=== PATIENT | male | born 1975 | race Caucasian/White ===

== ENCOUNTER → 2023-02-11 07:59 | Outpatient (REF) | payer BC, SELFPAY | LOC: CLAB 07:59 | PROVIDERS: ATTENDING PHYSICIAN Surgery; REFERRING PHYSICIAN Family Medicine | DX: T81.31XA Disruption of external operation (surgical) wound, not elsewhere classified, initial encounter (principal); S31.109A Unspecified open wound of abdominal wall, unspecified quadrant without penetration into peritoneal cavity, initial encounter; C20 Malignant neoplasm of rectum; C78.7 Secondary malignant neoplasm of liver and intrahepatic bile duct; Z92.3 Personal history of irradiation; Y83.8 Other surgical procedures as the cause of abnormal reaction of the patient, or of later complication, without mention of misadventure at the time of the procedure | CPT/HCPCS: 11042; 87070; 87147; 87186; 87205; 99204 ==

== ENCOUNTER → 2023-02-16 08:54 | Outpatient (REF) | payer BC, SELFPAY | LOC: WOUND 08:54 | PROVIDERS: ATTENDING PHYSICIAN Surgery; REFERRING PHYSICIAN Family Medicine | DX: T81.31XA Disruption of external operation (surgical) wound, not elsewhere classified, initial encounter (principal); S31.109A Unspecified open wound of abdominal wall, unspecified quadrant without penetration into peritoneal cavity, initial encounter; C20 Malignant neoplasm of rectum; C78.7 Secondary malignant neoplasm of liver and intrahepatic bile duct; Z92.3 Personal history of irradiation; X58.XXXA Exposure to other specified factors, initial encounter | CPT/HCPCS: 11042; 99204 ==

== ENCOUNTER → 2023-06-11 08:44 | Outpatient (REF) | payer BC, SELFPAY ==
[2023-06-11 11:59] LABS: HDL Cholesterol 41 mg/dl; LDL Cholesterol, Calculated 119 mg/dl; Total Cholesterol 182 mg/dl (50-199); Triglyceride 113 mg/dl (10-149); Very Low Density Lipoprotein 22 mg/dl (0-30)
== END ==
LOC: RAD 08:44
PROVIDERS: ATTENDING PHYSICIAN Family Medicine; OTHER PHYSICIAN Internal Medicine Cardiovascular Disease
DX: K43.2 Incisional hernia without obstruction or gangrene (principal)
CPT/HCPCS: 36415; 76705; 80061

== ENCOUNTER → 2024-07-11 10:39 | Outpatient (REF) | payer BC, SELFPAY ==
[2024-07-11 12:55] LABS: % Basophils 0.9 % (0-2); % Eosinophils 2.3 % (0-6); % Immature Granulocytes 0.5 % (0-0.5); % Lymphocytes 23.2 % (20.5-51.1); % Monocytes 11.5 % (1.7-9.3); % Neutrophils 61.6 % (42.2-75.2); Absolute Eosinophils 0.1 10^3/uL (0-0.7); Absolute Monocytes 0.5 10^3/uL (0.1-0.6); Absolute Neutrophils 2.6 10^3/uL (1.4-6.5); Hematocrit 44.6 % (39.0-52.0); Hemoglobin 14.9 g/dL (13.0-18.0); Mean Corp Hgb Conc. 33.4 g/dL (33.0-37.0); Mean Corpuscular Hgb 30.8 pg (27.0-31.0); Mean Corpuscular Volume 92.1 fL (80.0-94.0); Mean Platelet Volume 9.5 fL (7.4-10.4); Nucleated Red Blood Cells % 0 % (-); Platelet Count 269 10^3/uL (130-400); Red Blood Cell Count 4.84 10^6/uL (4.70-6.10); Red Cell Dist. Width 12.7 % (11.5-14.5); White Blood Cell Count 4.3 10^3/uL (4.8-10.8)
[2024-07-11 13:18] LABS: ALT (SGPT) 21 U/L (0-50); AST (SGOT) 21 U/L (17-59); Albumin 5.1 g/dl (3.5-5.0); Alkaline Phosphatase 70 U/L (38-126); Blood Urea Nitrogen 19 mg/dl (9-20); Calcium 10.2 mg/dl (8.4-10.2); Carbon Dioxide 27 mmol/L (22-30); Chloride 105 mmol/L (98-107); Glucose 102 mg/dl (70-99); Potassium 5.3 mmol/L (3.5-5.1); Sodium 142 mmol/L (135-145); Total Bilirubin 0.6 mg/dl (0.2-1.3); eGFR > 60.00
== END ==
LOC: REG 10:39
PROVIDERS: ATTENDING PHYSICIAN Internal Medicine Medical Oncology; FAMILY PHYSICIAN Family Medicine
DX: C18.9 Malignant neoplasm of colon, unspecified (principal); C78.7 Secondary malignant neoplasm of liver and intrahepatic bile duct
CPT/HCPCS: 36415; 80053; 85025

== ENCOUNTER → 2024-07-25 12:42 | Outpatient (REF) | payer BC, SELFPAY ==
[2024-07-25 13:31] LABS: % Basophils 0.5 % (0-2); % Eosinophils 1.3 % (0-6); % Immature Granulocytes 0.2 % (0-0.5); % Lymphocytes 16.5 % (20.5-51.1); % Monocytes 5.4 % (1.7-9.3); % Neutrophils 76.1 % (42.2-75.2); Absolute Eosinophils 0.1 10^3/uL (0-0.7); Absolute Monocytes 0.3 10^3/uL (0.1-0.6); Absolute Neutrophils 4.8 10^3/uL (1.4-6.5); Hematocrit 43.8 % (39.0-52.0); Hemoglobin 14.5 g/dL (13.0-18.0); Mean Corp Hgb Conc. 33.1 g/dL (33.0-37.0); Mean Corpuscular Hgb 30.5 pg (27.0-31.0); Mean Platelet Volume 9.1 fL (7.4-10.4); Nucleated Red Blood Cells % 0 % (-); Platelet Count 250 10^3/uL (130-400); Red Blood Cell Count 4.76 10^6/uL (4.70-6.10); Red Cell Dist. Width 13.2 % (11.5-14.5); White Blood Cell Count 6.3 10^3/uL (4.8-10.8)
[2024-07-25 13:59] LABS: ALT (SGPT) 20 U/L (0-50); AST (SGOT) 20 U/L (17-59); Albumin 5.2 g/dl (3.5-5.0); Alkaline Phosphatase 64 U/L (38-126); Blood Urea Nitrogen 14 mg/dl (9-20); Calcium 10.4 mg/dl (8.4-10.2); Carbon Dioxide 28 mmol/L (22-30); Chloride 104 mmol/L (98-107); Glucose 112 mg/dl (70-99); Potassium 6.6 mmol/L (3.5-5.1); Sodium 142 mmol/L (135-145); Total Bilirubin 0.7 mg/dl (0.2-1.3); Total Protein 7.7 g/dl (6.3-8.2); eGFR > 60.00
== END ==
LOC: REG 12:42
PROVIDERS: ATTENDING PHYSICIAN Internal Medicine
DX: Z51.11 Encounter for antineoplastic chemotherapy (principal); C18.9 Malignant neoplasm of colon, unspecified; C78.7 Secondary malignant neoplasm of liver and intrahepatic bile duct
CPT/HCPCS: 36415; 80053; 85025

== ENCOUNTER 2024-07-26 11:18 | Emergency (ER) | payer BC, SELFPAY ==
[2024-07-26 11:23] VITALS: BP 141/80
[2024-07-26 11:50] LABS: % Basophils 1.1 % (0-2); % Eosinophils 2.5 % (0-6); % Immature Granulocytes 0.2 % (0-0.5); % Lymphocytes 22.9 % (20.5-51.1); % Monocytes 7.4 % (1.7-9.3); % Neutrophils 65.9 % (42.2-75.2); Absolute Basophils 0.1 10^3/uL (0-0.2); Absolute Eosinophils 0.1 10^3/uL (0-0.7); Absolute Monocytes 0.3 10^3/uL (0.1-0.6); Absolute Neutrophils 2.9 10^3/uL (1.4-6.5); Hemoglobin 14.6 g/dL (13.0-18.0); Mean Corpuscular Hgb 30.7 pg (27.0-31.0); Mean Corpuscular Volume 90.5 fL (80.0-94.0); Nucleated Red Blood Cells % 0 % (-); Platelet Count 245 10^3/uL (130-400); Red Blood Cell Count 4.75 10^6/uL (4.70-6.10); Red Cell Dist. Width 13.3 % (11.5-14.5); White Blood Cell Count 4.5 10^3/uL (4.8-10.8)
[2024-07-26 12:17] LABS: Blood Urea Nitrogen 20 mg/dl (9-20); Glucose 118 mg/dl (70-99); Sodium 141 mmol/L (135-145); eGFR > 60.00
[2024-07-26 12:18] LABS: Alkaline Phosphatase 58 U/L (38-126); Calcium 9.7 mg/dl (8.4-10.2); Carbon Dioxide 25 mmol/L (22-30); Chloride 105 mmol/L (98-107); Potassium 4.9 mmol/L (3.5-5.1); Total Protein 7.5 g/dl (6.3-8.2)
[2024-07-26 12:19] LABS: ALT (SGPT) 20 U/L (0-50); AST (SGOT) 19 U/L (17-59); Total Bilirubin 0.6 mg/dl (0.2-1.3)
--- NOTE | 2024-07-26 13:30 | ED.GENMED ---
History of Present Illness
General
Chief Complaint: Abnormal Lab Value
Source: patient and records
Exam Limitations: none
Time Seen by Provider: 07/26/24 13:19
History of Present Illness
History of Present Illness:
49yoM with a history of colorectal cancer receiving chemotherapy at [facility] presenting for evaluation of an abnormal outpatient lab. Patient gets blood work every other week before his chemotherapy treatments. He had his routine blood work
yesterday and potassium was elevated at 6.6. He was called today and advised to go to the ED for evaluation. Patient has no complaints at this time. He denies any vomiting, diarrhea, fevers, difficulty urinating. He admits to doing a lot of yard
work yesterday. No prior history of CKD.
Past History
Past History
ED Past Medical History: Cancer (Rectal CA), HTN, Psychiatric (Anxiety, ) and Other (Neuropathy, Pul nodules, right atrium blood clot from port, Psoriasis, Liver Surgery)
ED Past Surgical History: Bowel resection (Colostomy with reversal) and Orthopedic (Right knee surgery)
Social History
Tobacco: Smoker
Alcohol: None
Personal:
Living: with family
Phy Exam
General Physical Exam
General Presentation: well appearing and no apparent distress
General age: appears stated age
General Skin: warm and dry
General Habitus: normal
General Mental: alert
ENT Exam
ENT Exam: normocephalic
Cardiovascular Exam
Cardiovascular Exam: regular rate/rhythm and no murmur
Pulmonary Exam
Pulmonary Exam: lungs clear, no respiratory distress, no rales, no crackles, no rhonchi and no wheezing
Neurological Exam
Neurological Exam: alert
[place] Coma Scale
Eye Opening: Spontaneous
Verbal Response: Oriented
Motor Response: Obeys Commands
GCS Total Score: 15
Skin Exam
Skin Exam: normal color and warm/dry
Psychiatric Exam
Psychiatric Exam: normal mood/affect
Course
Orders/Labs/Results
Orders:
Orders
07/26/24 11:25
EKG [Electrocardiogram (*1)] Urgent
Reason for Study: Other
Other Reason for Exam: high potassium
07/26/24 11:26
EKG- Treatment ONCE
07/26/24 11:36
Complete Blood Count/With Diff Urgent
Comprehensive Metabolic Panel Urgent
Abnormal Lab Results
07/26/24
11:36
WBC 4.5 L 10^3/uL
(4.8-10.8)
Absolute Lymphs (auto) 1.0 L 10^3/uL
(1.2-3.4)
Glucose 118 H mg/dl
(70-99)
07/26/24 11:36
07/26/24 11:36
Vital Signs
Initial and Last Documented VS:
Initial Vital Signs
Temp Pulse Resp BP Pulse Ox
98.8 F 90 17 141/80 98
07/26/24 11:23 07/26/24 11:23 07/26/24 11:23 07/26/24 11:23 07/26/24 11:23
Last Documented Vital Signs
Temp Pulse Resp BP Pulse Ox
98.8 F 66 18 139/78 99
07/26/24 11:23 07/26/24 13:41 07/26/24 13:41 07/26/24 13:41 07/26/24 13:41
MDM/Problems Addressed
Differential Diagnosis Includes:
49yoM here after a potassium of 6.6 was found on routine labs yesterday. Currently asymptomatic. Hx of colorectal cancer receiving chemo. VSS. He is well appearing in no distress. Differential diagnosis includes: lab error/hemolysis, renal failure,
medication side effect
Repeat labs obtained today and potassium is normal at 4.9. Remainder of labs are unremarkable including normal renal function. No EKG changes noted. No indication for hospitalization. Suspect lab error. He was advised to have repeat outpatient blood
work in a few days. Patient in agreement with plan and was discharged in stable condition.
*EKG
Interpreted by ED Provider?: Yes
EKG Intrepretation Date: 07/26/24
Heart Rate: 79
Rate: normal
Rhythm: sinus
[place]: normal axis
Interval: normal interval
QRS Pattern: normal QRS
Ischemia: no ischemia
*Critical Care Note
Total Time (30-74mins, 75-104mins- exclusive of procedures): Not Applicable
ED Attending Note
-
Portions of this chart may have been created with voice recognition software.� Occasional wrong word or��sound alike� substitutions may have occurred due to the inherent limitations of voice recognition software.
Discharge Plan
Departure
Patient Disposition: Home (Routine Discharge)
Date of Disposition: 07/26/24
Time of Disposition: 13:33
Patient with high blood pressure during this ER visit?: Yes
Discharge Problem:
Abnormal blood chemistry level
Instructions: Hyperkalemia (DC)
Prescriptions:
No Action
oxycodone 5 mg Tablet
5 mg PO Q6HPRN PRN (Reason: severe pain)
Patient Comments:
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
therapeutic multivitamin Tablet
1 tab PO DAILY
vitamin E 268 mg (400 unit) Capsule
268 mg PO DAILY
Ensure Liquid
1 ea PO DAILY
polyethylene glycol 3350 17 gram/dose powder
17 g PO DAILY Qty: 510 0RF
Activity Restrictions/Additional Instructions:
You should have repeat blood work done in the new few days.
Please follow-up with your family doctor. Return to the ER with any new or worsening symptoms.
Interventions
Interventions:
*Risk Screen - Suicide Last Done: 07/26/24 11:24
*General Assessment Last Done: 07/26/24 11:24
*Neglect/Abuse Screening Last Done: 07/26/24 11:24
*ED- Fall Risk Assessment Last Done: 07/26/24 13:43
*ED COVID-19 Vaccine History Last Done: 07/26/24 11:24
*Nursing Disposition Last Done: 07/26/24 13:43
Discharge Date and Time
Discharge Date/Time: 07/26/24 14:03
Print Language: CHINESE
[2024-07-26 13:41] VITALS: BP 139/78
== END 2024-07-26 14:03 | disposition home or self-care (01) ==
LOC: EMR 11:18
PROVIDERS: Emergency Medicine; EMERGENCY PHYSICIAN Emergency Medicine; FAMILY PHYSICIAN Family Medicine
DX: R79.89 Other specified abnormal findings of blood chemistry (principal); C19 Malignant neoplasm of rectosigmoid junction; I10 Essential (primary) hypertension; F41.9 Anxiety disorder, unspecified; G62.9 Polyneuropathy, unspecified; L40.9 Psoriasis, unspecified; F17.200 Nicotine dependence, unspecified, uncomplicated; Z98.0 Intestinal bypass and anastomosis status
CPT/HCPCS: 99283; 80053; 85025; 93005

== ENCOUNTER → 2024-08-08 14:31 | Outpatient (REF) | payer BC, SELFPAY ==
[2024-08-08 15:36] LABS: % Basophils 0.5 % (0-2); % Eosinophils 0.7 % (0-6); % Immature Granulocytes 0.3 % (0-0.5); % Lymphocytes 14.5 % (20.5-51.1); Absolute Lymphocytes 0.9 10^3/uL (1.2-3.4); Absolute Monocytes 0.5 10^3/uL (0.1-0.6); Absolute Neutrophils 4.4 10^3/uL (1.4-6.5); Hematocrit 40.3 % (39.0-52.0); Hemoglobin 13.7 g/dL (13.0-18.0); Mean Corpuscular Hgb 30.6 pg (27.0-31.0); Mean Corpuscular Volume 90.2 fL (80.0-94.0); Mean Platelet Volume 9.2 fL (7.4-10.4); Nucleated Red Blood Cells % 0 % (-); Platelet Count 207 10^3/uL (130-400); Red Blood Cell Count 4.47 10^6/uL (4.70-6.10); Red Cell Dist. Width 13.7 % (11.5-14.5); White Blood Cell Count 5.9 10^3/uL (4.8-10.8)
[2024-08-08 15:52] LABS: ALT (SGPT) 17 U/L (0-50); AST (SGOT) 18 U/L (17-59); Albumin 4.5 g/dl (3.5-5.0); Alkaline Phosphatase 60 U/L (38-126); Blood Urea Nitrogen 14 mg/dl (9-20); Calcium 9.7 mg/dl (8.4-10.2); Carbon Dioxide 28 mmol/L (22-30); Chloride 105 mmol/L (98-107); Glucose 92 mg/dl (70-99); Potassium 4.4 mmol/L (3.5-5.1); Sodium 141 mmol/L (135-145); Total Bilirubin 0.7 mg/dl (0.2-1.3); Total Protein 7.2 g/dl (6.3-8.2); eGFR > 60.00
[2024-08-08 19:48] LABS: CEA 3.11 ng/ml
== END ==
LOC: REG 14:31
PROVIDERS: ATTENDING PHYSICIAN Registered Nurse Oncology; FAMILY PHYSICIAN Family Medicine
DX: R97.0 Elevated carcinoembryonic antigen [CEA] (principal); C18.9 Malignant neoplasm of colon, unspecified; C78.7 Secondary malignant neoplasm of liver and intrahepatic bile duct
CPT/HCPCS: 36415; 80053; 82378; 85025

== ENCOUNTER → 2024-08-22 14:18 | Outpatient (REF) | payer BC, SELFPAY ==
[2024-08-22 15:30] LABS: % Basophils 0.6 % (0-2); % Eosinophils 0.6 % (0-6); % Immature Granulocytes 0.4 % (0-0.5); % Lymphocytes 20.9 % (20.5-51.1); % Monocytes 7.9 % (1.7-9.3); % Neutrophils 69.6 % (42.2-75.2); Absolute Monocytes 0.4 10^3/uL (0.1-0.6); Absolute Neutrophils 3.3 10^3/uL (1.4-6.5); Hematocrit 38.7 % (39.0-52.0); Hemoglobin 13.3 g/dL (13.0-18.0); Mean Corp Hgb Conc. 34.4 g/dL (33.0-37.0); Mean Corpuscular Hgb 31.1 pg (27.0-31.0); Mean Corpuscular Volume 90.6 fL (80.0-94.0); Mean Platelet Volume 9.1 fL (7.4-10.4); Nucleated Red Blood Cells % 0 % (-); Platelet Count 199 10^3/uL (130-400); Red Blood Cell Count 4.27 10^6/uL (4.70-6.10); Red Cell Dist. Width 14.2 % (11.5-14.5); White Blood Cell Count 4.7 10^3/uL (4.8-10.8)
[2024-08-22 15:31] LABS: ALT (SGPT) 18 U/L (0-50); AST (SGOT) 23 U/L (17-59); Alkaline Phosphatase 56 U/L (38-126); Blood Urea Nitrogen 20 mg/dl (9-20); Calcium 9.7 mg/dl (8.4-10.2); Carbon Dioxide 25 mmol/L (22-30); Chloride 109 mmol/L (98-107); Glucose 106 mg/dl (70-99); Potassium 4.9 mmol/L (3.5-5.1); Sodium 140 mmol/L (135-145); Total Bilirubin 0.6 mg/dl (0.2-1.3); Total Protein 7.4 g/dl (6.3-8.2); eGFR > 60.00
[2024-08-22 19:34] LABS: CEA 3.16 ng/ml
== END ==
LOC: REG 14:18
DX: C78.01 Secondary malignant neoplasm of right lung (principal); Z51.11 Encounter for antineoplastic chemotherapy; C18.9 Malignant neoplasm of colon, unspecified; C78.7 Secondary malignant neoplasm of liver and intrahepatic bile duct
CPT/HCPCS: 36415; 80053; 82378; 85025

== ENCOUNTER → 2024-09-05 13:38 | Outpatient (REF) | payer BC, SELFPAY ==
[2024-09-05 14:21] LABS: % Basophils 0.6 % (0-2); % Immature Granulocytes 0.4 % (0-0.5); % Lymphocytes 20.2 % (20.5-51.1); % Monocytes 7.4 % (1.7-9.3); % Neutrophils 70.4 % (42.2-75.2); Absolute Eosinophils 0.1 10^3/uL (0-0.7); Absolute Lymphocytes 1.1 10^3/uL (1.2-3.4); Absolute Monocytes 0.4 10^3/uL (0.1-0.6); Absolute Neutrophils 3.7 10^3/uL (1.4-6.5); Hematocrit 40.8 % (39.0-52.0); Hemoglobin 13.9 g/dL (13.0-18.0); Mean Corp Hgb Conc. 34.1 g/dL (33.0-37.0); Mean Corpuscular Hgb 31.5 pg (27.0-31.0); Mean Corpuscular Volume 92.5 fL (80.0-94.0); Mean Platelet Volume 9.3 fL (7.4-10.4); Nucleated Red Blood Cells % 0 % (-); Platelet Count 193 10^3/uL (130-400); Red Blood Cell Count 4.41 10^6/uL (4.70-6.10); Red Cell Dist. Width 15.3 % (11.5-14.5); White Blood Cell Count 5.3 10^3/uL (4.8-10.8)
[2024-09-05 14:55] LABS: ALT (SGPT) 16 U/L (0-50); AST (SGOT) 18 U/L (17-59); Albumin 4.8 g/dl (3.5-5.0); Alkaline Phosphatase 56 U/L (38-126); Blood Urea Nitrogen 22 mg/dl (9-20); Calcium 9.3 mg/dl (8.4-10.2); Carbon Dioxide 24 mmol/L (22-30); Chloride 109 mmol/L (98-107); Glucose 104 mg/dl (70-99); Potassium 4.6 mmol/L (3.5-5.1); Sodium 142 mmol/L (135-145); Total Bilirubin 0.5 mg/dl (0.2-1.3); Total Protein 7.3 g/dl (6.3-8.2); eGFR > 60.00
[2024-09-05 19:37] LABS: CEA 3.03 ng/ml
== END ==
LOC: REG 13:38
PROVIDERS: ATTENDING PHYSICIAN Internal Medicine; FAMILY PHYSICIAN Family Medicine
DX: C18.9 Malignant neoplasm of colon, unspecified (principal); C78.7 Secondary malignant neoplasm of liver and intrahepatic bile duct; C78.01 Secondary malignant neoplasm of right lung; Z51.11 Encounter for antineoplastic chemotherapy; R97.0 Elevated carcinoembryonic antigen [CEA]
CPT/HCPCS: 36415; 80053; 82378; 85025

== ENCOUNTER → 2024-09-20 12:08 | Outpatient (REF) | payer BC, SELFPAY ==
[2024-09-20 13:25] LABS: % Basophils 0.7 % (0-2); % Eosinophils 1.3 % (0-6); % Immature Granulocytes 0.6 % (0-0.5); % Lymphocytes 18.2 % (20.5-51.1); % Monocytes 7.9 % (1.7-9.3); % Neutrophils 71.3 % (42.2-75.2); Absolute Eosinophils 0.1 10^3/uL (0-0.7); Absolute Monocytes 0.4 10^3/uL (0.1-0.6); Absolute Neutrophils 3.9 10^3/uL (1.4-6.5); Hematocrit 40.9 % (39.0-52.0); Hemoglobin 13.7 g/dL (13.0-18.0); Mean Corp Hgb Conc. 33.5 g/dL (33.0-37.0); Mean Corpuscular Hgb 31.4 pg (27.0-31.0); Mean Corpuscular Volume 93.8 fL (80.0-94.0); Mean Platelet Volume 9.5 fL (7.4-10.4); Nucleated Red Blood Cells % 0 % (-); Platelet Count 195 10^3/uL (130-400); Red Blood Cell Count 4.36 10^6/uL (4.70-6.10); Red Cell Dist. Width 15.9 % (11.5-14.5); White Blood Cell Count 5.5 10^3/uL (4.8-10.8)
[2024-09-20 13:50] LABS: ALT (SGPT) 15 U/L (0-50); AST (SGOT) 18 U/L (17-59); Albumin 4.9 g/dl (3.5-5.0); Alkaline Phosphatase 59 U/L (38-126); Blood Urea Nitrogen 21 mg/dl (9-20); Carbon Dioxide 24 mmol/L (22-30); Chloride 110 mmol/L (98-107); Glucose 98 mg/dl (70-99); Potassium 5.3 mmol/L (3.5-5.1); Sodium 141 mmol/L (135-145); Total Bilirubin 0.6 mg/dl (0.2-1.3); Total Protein 7.5 g/dl (6.3-8.2); eGFR > 60.00
== END ==
LOC: REG 12:08
PROVIDERS: ATTENDING PHYSICIAN Internal Medicine; FAMILY PHYSICIAN Family Medicine
DX: C18.9 Malignant neoplasm of colon, unspecified (principal); C78.7 Secondary malignant neoplasm of liver and intrahepatic bile duct; C78.01 Secondary malignant neoplasm of right lung; Z51.11 Encounter for antineoplastic chemotherapy; R97.0 Elevated carcinoembryonic antigen [CEA]
CPT/HCPCS: 36415; 80053; 85025

== ENCOUNTER 2024-10-02 05:50 | Inpatient (IN) | payer BC, MEDICARE, SELFPAY ==
[2024-10-02] VITALS (8 sets, daily range): BP systolic 104–137; BP diastolic 60–90; BMI 25.0
--- NOTE | 2024-10-02 02:31 | EDRN ---
Pt had a SBO 04/2023 and says he is having similar pain which started around 1999. Pt actively vomiting.
--- NOTE | 2024-10-02 02:37 | ED.GENMED ---
History of Present Illness
General
Chief Complaint: Abdominal Pain
Source: patient and previous hospital records (Hospitalization April 2023 for similar complaints, found to have small bowel obstruction.)
Exam Limitations: none
Time Seen by Provider: 10/02/24 02:22
Nursing documentation reviewed up to this point in time: agreed with
History of Present Illness
History of Present Illness:
This is a 49-year-old gentleman with history of colorectal cancer status post resection with ileostomy 2021, eventual colostomy reversal 2022. Metastatic liver lesion resection January 2023.
Hospitalized here April 2023 for small bowel obstruction, resolved with conservative measures.
Currently following with [facility] receiving chemotherapy every 2 weeks with last round of chemo September 07. Patient states he was scheduled for chemotherapy September 21 but he declined, noting that he has been feeling well�stable and hoping
to discontinue his chemotherapy.
Tonight however he developed mild generalized right-sided abdominal pain that has been progressive throughout the evening with onset of nausea just prior to arrival. Current symptoms feel similar to previous small bowel obstruction April 2023.
During my initial evaluation patient proceeded to vomit large amount of light brown liquid. This is his first episode of vomiting.
He has not passed a bowel movement today. His last bowel movement was yesterday.
Past History
Past History
ED Past Medical History: Cancer (Rectal CA), HTN, Psychiatric (Anxiety, ), Other (Neuropathy, Pulm nodules, right atrium blood clot from port, Psoriasis, Liver Surgery) and Other (Small bowel obstruction April 2023)
ED Past Surgical History: Bowel resection (Colostomy with reversal) and Orthopedic (Right knee surgery)
Social History
Tobacco: Smoker
Alcohol: None
Personal:
Living: with family
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
Family History
Family History: Other (Noncontributory)
Phy Exam
Physical Exam
Physical Exam:
GENERAL: 49-year-old gentleman appears his stated age, awake and alert, appears moderately uncomfortable. Intermittently retching and vomiting into emesis basin.
EYE: anicteric
NECK: Supple, nontender, no meningismus, no significant adenopathy.
ENT: oral mucosa is moist.
CARDIAC: Regular rate and rhythm. no murmur.
LUNGS: Clear breath sounds bilaterally, no acute respiratory distress, no wheezes/rales/rhonchi
ABDOMEN: Soft, nondistended, moderate tenderness right upper quadrant, right mid to right lower quadrant with palpable firm ridge of tissue right mid to right upper quadrant. Patient states this is chronic 'scar tissue' Mildly hyperactive bowel
sounds.
NEUROLOGICAL: Alert and oriented x3, no focal neuro deficits.
SKIN: Warm and dry, normal color, skin intact. No rash.
MUSCULOSKELETAL: No C/C/E. peripheral pulses are full and equal b/l. No palpable tenderness.
PSYCH: Normal and appropriate interaction.
Course
Orders/Labs/Results
Orders:
Orders
10/02/24 02:28
0.9% Sodium Chloride 1000 ml [Nss] 1,000 ml IV BOLUS
10/02/24 02:36
CT Abd/pelvis W Iv Cont Urgent
Comment:
Reason For Exam: R abd pain, N/V. hx SOB, hx colorectal ca
HYDROmorphone [Dilaudid] 1 mg .ROUTE .STK-MED ONE
HYDROmorphone [Dilaudid] 1 mg IV NOW STA
Ondansetron Injectable [Zofran] 4 mg .ROUTE .STK-MED ONE
Ondansetron Injectable [Zofran] 4 mg IV NOW STA
10/02/24 02:39
Complete Blood Count/With Diff Urgent
Comprehensive Metabolic Panel Urgent
Lactic Acid Urgent
Lipase Urgent
10/02/24 03:09
HYDROmorphone [Dilaudid] 1 mg .ROUTE .STK-MED ONE
HYDROmorphone [Dilaudid] 1 mg IV NOW STA
Abnormal Lab Results
10/02/24
02:39
WBC 12.9 H 10^3/uL
(4.8-10.8)
MCH 31.9 H pg
(27.0-31.0)
RDW 15.7 H %
(11.5-14.5)
Abs Immat Gran (auto) 0.1 H 10^3/uL
(0-0.05)
Absolute Neuts (auto) 10.9 H 10^3/uL
(1.4-6.5)
Absolute Lymphs (auto) 1.1 L 10^3/uL
(1.2-3.4)
Immature Gran % 0.7 H %
(0-0.5)
Neutrophils % 84.6 H %
(42.2-75.2)
Lymphocytes % 8.7 L %
(20.5-51.1)
Glucose 112 H mg/dl
(70-99)
10/02/24 02:39
10/02/24 02:39
Vital Signs
Initial and Last Documented VS:
Initial Vital Signs
Temp Pulse Resp BP Pulse Ox
98.2 F 108 20 134/90 100
10/02/24 02:13 10/02/24 02:13 10/02/24 02:13 10/02/24 02:13 10/02/24 02:13
Last Documented Vital Signs
Temp Pulse Resp BP Pulse Ox
98.2 F 84 14 116/73 94
10/02/24 02:13 10/02/24 05:00 10/02/24 04:00 10/02/24 05:00 10/02/24 05:00
MDM/Problems Addressed
Differential Diagnosis Includes:
Significant concern for recurrent small bowel obstruction. Concern for incarcerated incisional hernia, other consideration is acute gastroenteritis, progression of colon cancer, choledocholithiasis, pancreatitis, ureteric stone.
Will medicate for pain and nausea, initiate IV fluids.
Will check labs including lactic acid.
Will plan for CT abdomen pelvis with IV contrast.
Chronic conditions affecting care: Previous abdomnial surgery and Cancer
*Radiology
Radiology exam reviewed: radiology read reviewed (CAT scan shows small bowel obstruction with moderately dilated small bowel up to 3.3 cm concerning for high-grade small bowel obstruction. Focal transition in the midline upper abdomen. No
pneumatosis nor free air nor wall thickening. Low-density lesions in the liver compatible with metastasis.)
*Pulse Oximetry
SaO2: 100
Oxygen Mode of Delivery: Room air
Patient hypoxic: no
*Critical Care Note
Total Time (30-74mins, 75-104mins- exclusive of procedures): Not Applicable
Update Note
Update Note:
CAT scan shows small bowel obstruction with transition in the mid upper abdomen appears related to adhesions.
Labs reveal mildly elevated white blood cell count, unremarkable chemistries. Normal lactic acid.
Will continue IV fluids, IV pain medication and admit to hospitalist service.
Prior small bowel obstruction resolved with conservative measures. At this point no indication for emergent surgical intervention.
ED Attending Note
-
Portions of this chart may have been created with voice recognition software.� Occasional wrong word or��sound alike� substitutions may have occurred due to the inherent limitations of voice recognition software.
Discharge Plan
Departure
Patient Disposition: Admit
Date of Disposition: 10/02/24
Time of Disposition: 05:05
Admit to: Med/Surg
Admit to doctor: Azeem
Presentation/result/management discussed w/ accepting MD/DO: Hospitalist
Discharge Problem:
Small bowel obstruction
Prescriptions:
No Action
oxycodone 5 mg Tablet
5 mg PO Q6HPRN PRN (Reason: severe pain)
vitamin E 268 mg (400 unit) Capsule
268 mg PO DAILY
Referrals:
Timo Piper DO [Family Provider, Family Practice]
Interventions
Interventions:
*Risk Screen - Suicide Last Done: 10/02/24 02:13
*General Assessment Last Done: 10/02/24 02:58
*Neglect/Abuse Screening Last Done: 10/02/24 02:13
*ED- Fall Risk Assessment Last Done: 10/02/24 02:59
PR-Ecyzuv-Gtkinswctx Assessment Last Done: 10/02/24 03:00
Discharge Date and Time
Print Language: EGYPTIAN
[2024-10-02] MEDS: ZOFRAN 4 MG IV ×2 (02:40→13:28)
[2024-10-02] MEDS: NSS 1000 IV (02:40)
[2024-10-02] MEDS: DILAUDID 1 MG IV ×2 (02:44→03:10)
[2024-10-02 03:02] LABS: Hematocrit 43.8 % (39.0-52.0); Hemoglobin 15.1 g/dL (13.0-18.0); Mean Corp Hgb Conc. 34.5 g/dL (33.0-37.0); Mean Corpuscular Volume 92.4 fL (80.0-94.0); Nucleated Red Blood Cells % 0 % (-); Platelet Count 265 10^3/uL (130-400); Red Cell Dist. Width 15.7 % (11.5-14.5)
[2024-10-02 03:18] LABS: ALT (SGPT) 17 U/L (0-50); AST (SGOT) 19 U/L (17-59); Albumin 4.9 g/dl (3.5-5.0); Alkaline Phosphatase 68 U/L (38-126); Blood Urea Nitrogen 14 mg/dl (9-20); Calcium 9.7 mg/dl (8.4-10.2); Carbon Dioxide 26 mmol/L (22-30); Chloride 107 mmol/L (98-107); Glucose 112 mg/dl (70-99); Lipase 73 U/L (23-300); Potassium 4.0 mmol/L (3.5-5.1); Sodium 142 mmol/L (135-145); Total Protein 7.6 g/dl (6.3-8.2); eGFR > 60.00
--- NOTE | 2024-10-02 03:31 | EDRN ---
Pt says he ate at [employer] then went to a movie with his son. On the way home, pt started to not feel well. Symptoms worsened at home and pt says he felt like he had a bowel obstruction. Pt developed nausea on the way to the ED and vomited
light brown liquid few minutes after being placed in an ED room. Pain on R side of abdomen. Last BM was yesterday. Pt reports pain has improved after 2 doses of dilaudid IV. No vomiting since zofran given.
--- NOTE | 2024-10-02 05:47 | HPS.HSE ---
Family Physician
-
Family Physician: Timo Piper DO
Chief Complaint
-
Abd Pain
History of Present Illness
Patient is a 49y M with PMH significant for metastatic rectal cancer who presents to ED complaining of abdominal pain. Patient states that he developed pain this evening after dinner ([employer]). He had persistent mid-abdominal pain throughout
the evening and some nausea. He presented to the ED for further evaluation. He had an episode of emesis here in the ED. Patient reports prior history of similar symptoms with SBO. He was hospitalized here for SBO in April 2023.
Patient denies any fevers / chills, diarrhea, bloody stools, urinary complaints, etc.
He is followed currently at [place] and notes that he completed chemotherapy about 2 weeks ago. No further treatment is apparently planned at this time.
He was originally diagnosed and treated in 2020 with chemo and XRT followed by low anterior resection.
Medical History
Past Medical History
Past Medical History: Reports Other
Additional Past Medical History:
Rectal Cancer
Pelvic Abscesses
Catheter-Associated Thrombus (Port)
Past Surgical History: Reports Other
Additional Past Surgical History:
Low Anterior Resection / Ileostomy
Ileoanal Pull-Through
Coloanal Pull-Through
Ostomy Take-Down
Vasectomy
Social History
Alcohol: None
Drug: None
Family History
Family History: Not pertinent
Allergies / Home Medications
Allergies reflects when Allergies were last updated in [employer].
Home Medications with original date entered in [employer]
Allergy/Medication List:
Allergies
Allergy/AdvReac Type Severity Reaction Status Date / Time
No Known Allergies Allergy Verified 10/02/24 02:16
Home Medications
oxycodone 5 mg tablet 5 mg PO Q6HPRN PRN severe pain 11/14/22
vitamin E 268 mg (400 unit) capsule 268 mg PO DAILY 04/09/23
Review of Systems
-
History Source: Patient
A 12 point ROS was completed and negative except as noted: Yes
Constitutional: Denies Fever or Chills
Respiratory: Denies Cough or Trouble Breathing
Cardiac: Denies Chest Pain or Palpitations
Abdomen/GI: Reports Abdominal Pain, Nausea and Vomiting; Denies Diarrhea or Bloody Stools
: Denies Dysuria, Frequency or Flank Pain
Musculoskeletal: Denies Joint Pain or Edema
Neurological: Denies Dizzy or Headache
Psych: Denies Depression or Anxiety
Physical Exam
Vital Signs
Vital Signs
Temp Pulse Resp BP Pulse Ox
98.2 F 84 14 116/73 94
10/02/24 02:13 10/02/24 05:00 10/02/24 04:00 10/02/24 05:00 10/02/24 05:00
Physical Exam
General: Other (49y M in no acute distress.)
HEENT: Moist mucous membranes and PERRLA
Respiratory: Clear; No Wheezes, Rales or Rhonchi
Cardiac: S1/S2 and Regular Rhythm; No Murmur
GI: Soft, Non Distended, Normal Bowel Sounds and Other (Mildly tender - mostly along R abdomen. No rebound / guarding.)
Musculoskeletal: No Clubbing, No Cyanosis and No Edema
Neuro: AO x 3
Laboratory Results
-
10/02/24 02:39
10/02/24 02:39
Laboratory Results
Lactic Acid 1.2 mmol/L (0.7-2.0) 10/02/24 02:39
Total Bilirubin 0.8 mg/dl (0.2-1.3) 10/02/24 02:39
AST 19 U/L (17-59) 10/02/24 02:39
ALT 17 U/L (0-50) 10/02/24 02:39
Alkaline Phosphatase 68 U/L (38-126) 10/02/24 02:39
Lipase 73 U/L (23-300) 10/02/24 02:39
Impression/Plan
-
A/P: Patient is a 49y M with PMH significant for rectal cancer who presents to ED complaining of abdominal pain.
SBO
- Admit for further evaluation and treatment.
- Abdominal pain this evening followed by N/V.
- CT done in the ED shows SBO with transition point in the mid / upper abdomen.
- Likely secondary to adhesions +/- stenosis or scarring at anastomosis site(s).
- Patient appears very comfortable despite imaging appearance.
- NPO, IVFs, pain control, anti-emetics.
- NG tube decompression if increased pain, recurrent N/V, etc.
- Surgery evaluation for additional recommendations.
- Follow for clinical improvement.
Metastatic Rectal Cancer
- Originally diagnosed in 2020 and s/p LAR at that time.
- States that he just completed chemo at [place] two weeks ago.
- Apparently no additional treatment planned at this time?
- CT done today with suggestion of liver / abdominal wall involvement.
- Follow-up at [facility] following discharge.
DVT Prophylaxis: Lovenox
Code Status: Full
[2024-10-02] MEDS: PROTONIX IV 40 MG IV (07:39)
[2024-10-02] MEDS: DILAUDID 0.5 MG IV ×4 (07:39→20:19)
[2024-10-02] MEDS: LR 1000 IV ×2 (07:39→17:35)
--- NOTE | 2024-10-02 08:39 | W.PN.UPDATE ---
Update Note
Progress Note Update
Non-billable addendum
Patient admitted 230 AM for SBO
Currently comfortable
Assessment:
SBO
- CT: Findings consistent with small bowel obstruction, small bowel measuring up to 3.2 cm in diameter. Distal small bowel is decompressed. No evidence of pneumatosis intestinalis or extraluminal air.
- May need NG tube
- NPO/IVF
- pain control, anti-emetics
- Surgery service consulted
Metastatic Rectal Cancer
- Originally diagnosed in 2020 and s/p LAR at that time.
- States that he just completed chemo at [place] two weeks ago.
- Apparently no additional treatment planned at this time?
- CT done today with suggestion of liver/abdominal wall involvement.
- Follow-up at [facility] following discharge.
DVT Prophylaxis: Lovenox
Code Status: Full
--- NOTE | 2024-10-02 10:49 | CM ---
Patient seen bedside, initial assessment completed. Patient is a 49y M with PMH significant for metastatic rectal cancer who presents to ED complaining of abdominal pain.
Patient resides w/ spouse and their 3 children in a single story home, 2 steps to enter. Patient is independent in all areas, no DME. No therapy hx reported.
Address, points of contact and insurance verified
PCP: Timo Piper
Pharmacy: [facility] [place]
Plan: Home, no needs
--- NOTE | 2024-10-02 11:23 | CON.GS ---
Consultation
-
Date/Time Consultation Performed: 10/02/24 0930
Medical History
-
Chief Complaint: abdominal pain
History of Present Illness:
Mr Dumont is a 49 yo male with a h/o cholecystectomy, rectal ca with liver resection and low anterior resection with ileostomy initially at [facility] 10/2021 with coloanal pull through here at with Dr. Bose 11/2021, subsequent anastomotic
dehiscence with pelvic abscess later that year with eventual reversal of ileostomy in May,, SBO in April of 2023 managed nonoperatively and recent completion of chemotherapy at [facility] about 2 weeks ago with outpatient follow up with his
oncologist planned later this week. He presented through the ED last night as he developed abdominal pain and nausea similar to his prior small bowel obstruction. He had a large episode of emesis in the ED and notes he has felt resolution of nausea
since then. He is not yet passing flatus. His last BM was yesterday prior to this event. He denies voiding difficulty. He denies fevers or chills. On exam, there is minimal distention with some tympany present but no tenderness.
Past Medical History
Past Medical History: Cancer (stage 4 rectal ca tx with surgery/chemo (last chemo was 2 weeks ago at [facility])), HTN and Other (right atrial clot from [facility], psoriasis)
Past Surgical History: Bowel Resection (low anterior resection with ileostomy 2021, coloanal pull through, anastomotic leak with drain (2021), ileostomy reversal 2022), Cholecystectomy and Orthopedic (right knee)
Social History
Tobacco: Non-Smoker
Alcohol: None
Living: With Family
Family History
Family History: Reviewed & Not Pertinent
Allergies / Home Medications
Allergy/AdvReac Type Severity Reaction Status Date / Time
No Known Allergies Allergy Verified 10/02/24 02:16
�Medication �Instructions �Recorded �Confirmed �Type
oxycodone 5 mg tablet 5 mg PO Q6HPRN PRN severe pain 11/14/22 10/02/24 History
vitamin E 268 mg (400 unit) capsule 268 mg PO DAILY 04/09/23 10/02/24 History
Review of Systems
-
A 10 point review of systems was completed, and was negative except as per HPI.
Physical Exam
Vital Signs
Temp Pulse Resp BP Pulse Ox
98.2 F 71 14 137/72 99
10/02/24 07:35 10/02/24 07:35 10/02/24 07:35 10/02/24 07:35 10/02/24 07:35
10/01/24 10/02/24 10/03/24
06:59 06:59 06:59
Actual Weight 70.352 kg
Body Mass Index (BMI) 25.0
Lab Results
10/02/24 02:39
10/02/24 02:39
WBC 12.9 10^3/uL (4.8-10.8) H 10/02/24 02:39
Hgb 15.1 g/dL (13.0-18.0) 10/02/24 02:39
Hct 43.8 % (39.0-52.0) 10/02/24 02:39
Plt Count 265 10^3/uL (130-400) 10/02/24 02:39
Abs Immat Gran (auto) 0.1 10^3/uL (0-0.05) H 10/02/24 02:39
Neutrophils % 84.6 % (42.2-75.2) H 10/02/24 02:39
Assessment / Plan
-
Mr Dumont is a 49 yo male with a h/o cholecystectomy, rectal ca with liver resection and low anterior resection with ileostomy initially at [facility] 10/2021 with coloanal pull through here at with Dr. Bose 11/2021, subsequent anastomotic
dehiscence with pelvic abscess later that year with eventual reversal of ileostomy in May,, SBO in April of 2023 managed nonoperatively and recent completion of chemotherapy at [facility] about 2 weeks ago with outpatient follow up with his
oncologist planned later this week.
He presented with nausea and abdominal pain with vomiting to the ED. CT scan demonstrating SBO, likely adhesive, without evidence of bowel threat or compromise. Hepatic mets as well as nodular thickening of the rectum present in keeping with his
metastatic disease, advanced from prior CT's at but imaging from [facility] currently unavailable. afebrile, vss. mild leukocytosis. Symptomatic improvement thus far with medical measures. Abdominal pain resolved, nausea resolved but still not yet
passing flatus.
Plan:
Continue NPO for bowel rest
Offered NGT, pt declining at this time but will reconsider if vomiting recurs
IVF while NPO
Continue outpatient follow up with his oncology team at [facility]
No surgery planned at this time, will follow for improvement with bowel rest and supportive care
--- NOTE | 2024-10-02 13:53 | PTCARENOTE ---
pt vomited approximately 500cc of brown fluid with food particles. discussed with pt the purpose and benefit of NG tube insertion. pt still refusing NG tube, but will reconsider if vomiting continues. IV zofran given
[2024-10-02] MEDS: LOVENOX 40 MG SC (17:35)
--- NOTE | 2024-10-03 01:35 | PTCARENOTE ---
Patient vomited at the beginning of the shift, educated patient regarding the option of having a NG tube place instead of vomiting (doctor wanted the NGT to be placed but patient refused earlier today). Patient is refusing once again.
[2024-10-03] MEDS: LR 1000 IV ×2 (02:54→13:18)
[2024-10-03] MEDS: DILAUDID 0.5 MG IV ×2 (03:06→20:08)
[2024-10-03 06:00] VITALS: BMI 24.6
[2024-10-03 08:07] VITALS: BP 123/69
[2024-10-03 08:34] LABS: Hematocrit 39.7 % (39.0-52.0); Hemoglobin 13.3 g/dL (13.0-18.0); Mean Corp Hgb Conc. 33.5 g/dL (33.0-37.0); Mean Corpuscular Volume 94.5 fL (80.0-94.0); Platelet Count 208 10^3/uL (130-400); Red Cell Dist. Width 15.6 % (11.5-14.5)
[2024-10-03 08:46] LABS: Blood Urea Nitrogen 14 mg/dl (9-20); Calcium 8.8 mg/dl (8.4-10.2); Carbon Dioxide 24 mmol/L (22-30); Chloride 110 mmol/L (98-107); Estimated Creatinine Clearance 113 ml/min; Glucose 94 mg/dl (70-99); Potassium 4.0 mmol/L (3.5-5.1); Sodium 141 mmol/L (135-145); eGFR > 60.00
[2024-10-03] MEDS: NSS (PRESERVATIVE FREE) 10 ML IV (08:55)
[2024-10-03] MEDS: PROTONIX IV 40 MG IV (08:57)
--- NOTE | 2024-10-03 09:41 | W.PN.GS2 ---
Addendum entered and electronically signed by Sony Ba MD 10/03/24 15:39:
I saw and examined the patient independently.
The resident's documentation was reviewed and I agree with the note, assessment and plan except where noted below.
Comment: This is a 49-year-old male with abdominal surgeries mostly related to rectal cancer currently on chemotherapy who presents with recurrent SBO, adhesive versus malignant that is resolving.
Will start with clears, can advance diet as tolerated.
Pain control.
If he is able to advance to a low residue diet by end of day, he is cleared for discharge from a surgery perspective.
He can follow-up with us as needed.
Original Note:
Today's Communication / Plan
-
Patient is doing well and has said he is ready to be discharged.
Wean patient off of pain medication as his tolerance improves.
Recommend another overnight to allow continued bowel rest and supportive care.
Start patient on clear diet for breakfast. If he's able to tolerate, then introduce low residue diet to minimize fiber intake for now.
Patient should be discharged once if he is able to tolerate diet regimen and continue to pass flatus and have regular bowel movements.
Assessment / Plan
-
Patient seems to be passing gas well and having regular bowel movements so his small bowel obstruction is resolving.
Time Spent
Total Time Spent with Patient (in minutes): 25
Subjective Data
-
Date of Service: October 03, 2024
49 yo M who presented with SBO upon admission has opened up and started passing flatus and having bowel movements.
Patient refused NG tube upon admission. He denies any n/v/f or chills and states that he feels well and is ready for discharge.
Objective Data
-
Intake and Output
10/02/24 10/03/24 10/04/24
06:59 06:59 06:59
Output Total 500 / 500
Balance -500 / -500
Output:
Emesis 500 / 500
Other:
Number of approximated MODERATE 3
amounts of urine
Number of unmeasured liquid
stools
Rectum 2
Vital Signs
Temp Pulse Resp BP Pulse Ox
98.2 F 60 18 123/69 98
10/03/24 08:07 10/03/24 08:07 10/03/24 08:07 10/03/24 08:07 10/03/24 08:07
Lab Results
10/03/24 07:25
10/03/24 07:25
Calcium 8.8 mg/dl (8.4-10.2) 10/03/24 07:25
Total Bilirubin 0.8 mg/dl (0.2-1.3) 10/02/24 02:39
AST 19 U/L (17-59) 10/02/24 02:39
ALT 17 U/L (0-50) 10/02/24 02:39
Alkaline Phosphatase 68 U/L (38-126) 10/02/24 02:39
Total Protein 7.6 g/dl (6.3-8.2) 10/02/24 02:39
Albumin 4.9 g/dl (3.5-5.0) 10/02/24 02:39
Physical Exam
-
General: NAD
Chest: No labored breathing
Abdomen: Minimal tenderness, pain or distention upon abdominal palpation
Patient has a orellana catheter: No
Patient has a central line: Yes (Right Forearm)
--- NOTE | 2024-10-03 15:02 | W.PN.HOSP.TC ---
Today's Communication/Plan
-
clears; ADAT
likely DC in 24 hours
Assessment / Plan
Assessment / Plan
Assessment:
SBO
- CT: Findings consistent with small bowel obstruction, small bowel measuring up to 3.2 cm in diameter. Distal small bowel is decompressed. No evidence of pneumatosis intestinalis or extraluminal air.
- pt refused NGT
- Diet: clears, ADAT to LRD
- pain control, anti-emetics
- Surgery service following
Metastatic Rectal Cancer
- Originally diagnosed in 2020 and s/p LAR at that time.
- States that he just completed chemo at [place] two weeks ago.
- Apparently no additional treatment planned at this time?
- CT done today with suggestion of liver/abdominal wall involvement.
- Follow-up at [facility] following discharge.
DVT Prophylaxis: Lovenox
Code Status: Full
Anticipated Discharge: Within 24 hours
Subjective/Interval History
-
Date of Service: October 03, 2024
resting comfortably, no complaints at present
Objective Data
-
Labs:
Laboratory Results
10/03/24
07:25
WBC 10.2
Hgb 13.3
Hct 39.7
Plt Count 208 D
Sodium 141
Potassium 4.0
Chloride 110 H
Carbon Dioxide 24
BUN 14
Creatinine 0.7
Glucose 94
Calcium 8.8
Vital Signs:
Vital Signs
Temp Pulse Resp BP Pulse Ox
98.2 F 60 18 123/69 98
10/03/24 08:07 10/03/24 08:07 10/03/24 08:07 10/03/24 08:07 10/03/24 08:07
I&O
10/02/24 10/03/24 10/04/24
06:59 06:59 06:59
Output Total 500 / 500
Balance -500 / -500
Physical Exam
-
General: No Apparent Distress
HEENT: Normocephalic and Atraumatic
Respiratory: Negative Wheezes
Cardiac: Regular Rhythm and S1/S2
GI: Soft
Neuro: AO x 3
Psych: Calm
Data Reviewed
-
Total Time Spent with Patient (in minutes): 41
Labs: Labs Reviewed by me
[2024-10-03 15:42] VITALS: BP 146/77
[2024-10-03] MEDS: LOVENOX 40 MG SC (17:19)
[2024-10-03 23:09] VITALS: BP 119/65
[2024-10-03] MEDS: LR IV (23:40)
[2024-10-04 06:00] VITALS: BMI 24.3
[2024-10-04 07:59] LABS: Hematocrit 39.2 % (39.0-52.0); Hemoglobin 13.5 g/dL (13.0-18.0); Mean Corp Hgb Conc. 34.4 g/dL (33.0-37.0); Mean Corpuscular Volume 93.1 fL (80.0-94.0); Platelet Count 178 10^3/uL (130-400); Red Cell Dist. Width 15.2 % (11.5-14.5)
[2024-10-04 08:13] LABS: Blood Urea Nitrogen 12 mg/dl (9-20); Calcium 8.9 mg/dl (8.4-10.2); Carbon Dioxide 27 mmol/L (22-30); Chloride 110 mmol/L (98-107); Estimated Creatinine Clearance 99 ml/min; Glucose 96 mg/dl (70-99); Potassium 4.9 mmol/L (3.5-5.1); Sodium 142 mmol/L (135-145); eGFR > 60.00
[2024-10-04] MEDS: PROTONIX IV 40 MG IV (08:17)
[2024-10-04] MEDS: NSS (PRESERVATIVE FREE) 10 ML IV (08:17)
[2024-10-04 08:24] VITALS: BP 140/72
--- NOTE | 2024-10-04 10:09 | W.PN.GS2 ---
Today's Communication / Plan
-
-- DC
Assessment / Plan
-
Patient is a 49 yo M p/w SBO likely secondary to adhesions possibly malignancy related
AVSS
Labs unremarkable
Clinically improved. Tolerating a low residue diet. No plans or indication for surgical management. Dispo per primary.
-- LRD
-- OK for DC from surgical perspective
Subjective Data
-
Date of Service: October 04, 2024
No complaints. Denies abdominal pain, nausea, or vomiting. Passing flatus and stools.
Objective Data
-
Intake and Output
10/03/24 10/04/24 10/05/24
06:59 06:59 06:59
Intake Total 900 / 900
Output Total 500 / 500
Balance -500 / -500 900 / 900
Intake:
Oral fluids 900 / 900
Output:
Emesis 500 / 500
Other:
Number of approximated SMALL 2
amounts of urine
Number of approximated MODERATE 3 3
amounts of urine
Number of unmeasured liquid
stools
Rectum 2
Vital Signs
Temp Pulse Resp BP Pulse Ox
98.3 F 58 18 140/72 98
10/04/24 08:24 10/04/24 08:24 10/04/24 08:24 10/04/24 08:24 10/04/24 08:24
Lab Results
10/04/24 07:39
10/04/24 07:39
Calcium 8.9 mg/dl (8.4-10.2) 10/04/24 07:39
Total Bilirubin 0.8 mg/dl (0.2-1.3) 10/02/24 02:39
AST 19 U/L (17-59) 10/02/24 02:39
ALT 17 U/L (0-50) 10/02/24 02:39
Alkaline Phosphatase 68 U/L (38-126) 10/02/24 02:39
Total Protein 7.6 g/dl (6.3-8.2) 10/02/24 02:39
Albumin 4.9 g/dl (3.5-5.0) 10/02/24 02:39
Physical Exam
-
Gen: NAD
Abd: soft, NT/ND, non-peritoneal, prior incisions well healed
Patient has a orellana catheter: No
Patient has a central line: No
--- NOTE | 2024-10-04 11:04 | W.PN.HOSP.TC ---
Today's Communication/Plan
-
dc to home
Assessment / Plan
Assessment / Plan
Assessment:
SBO
- CT: Findings consistent with small bowel obstruction, small bowel measuring up to 3.2 cm in diameter. Distal small bowel is decompressed. No evidence of pneumatosis intestinalis or extraluminal air.
- pt refused NGT
- Diet: LRD
- pain control, anti-emetics
- Surgery service signed off
Metastatic Rectal Cancer
- Originally diagnosed in 2020 and s/p LAR at that time.
- States that he just completed chemo at [place] two weeks ago.
- Apparently no additional treatment planned at this time?
- CT done today with suggestion of liver/abdominal wall involvement.
- Follow-up at [facility] [place] following discharge.
DVT Prophylaxis: Lovenox
Code Status: Full
More than 30 minutes spent in discharge including
Final examination of the patient
Summarizing hospital stay
Instructions for continuing care to all relevant caregivers
Preparation of discharge records, prescriptions, and referral forms
Total time spent (in minutes):41
Anticipated Discharge: Today
Subjective/Interval History
-
Date of Service: October 04, 2024
no complaints at present
Objective Data
-
Labs:
Laboratory Results
10/04/24
07:39
WBC 7.1
Hgb 13.5
Hct 39.2
Plt Count 178
Sodium 142
Potassium 4.9
Chloride 110 H
Carbon Dioxide 27
BUN 12
Creatinine 0.8
Glucose 96
Calcium 8.9
Vital Signs:
Vital Signs
Temp Pulse Resp BP Pulse Ox
98.3 F 58 18 140/72 98
10/04/24 08:24 10/04/24 08:24 10/04/24 08:24 10/04/24 08:24 10/04/24 08:24
I&O
10/03/24 10/04/24 10/05/24
06:59 06:59 06:59
Intake Total 900 / 900
Output Total 500 / 500
Balance -500 / -500 900 / 900
Physical Exam
-
General: No Apparent Distress
HEENT: Normocephalic and Atraumatic
Respiratory: Clear to Auscultation; Negative Wheezes
Cardiac: Regular Rhythm and S1/S2
Genito-urinary: No Costovertebral Tender
Neuro: AO x 3
Psych: Calm
Data Reviewed
-
Total Time Spent with Patient (in minutes): 41
Labs: Labs Reviewed by me
--- NOTE | 2024-10-04 11:06 | W.DS.TRANS ---
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
-
Discharge Instructions:
Discharge Diagnosis/Procedures small bowel obstruction
Diet Low Residue
Activity As tolerated
Instructions:
Stand-Alone Forms:
Changes to Home Medications: No
Discharge Medications:
DC Medications w/original date entered in [employer]
oxycodone 5 mg tablet 5 mg PO Q6HPRN PRN severe pain 11/14/22
vitamin E 268 mg (400 unit) capsule 268 mg PO DAILY Supplement 04/09/23
Home Medication Changes
Pending Results: No
Total time spent discharging patient (in min): 41
--- NOTE | 2024-10-04 11:39 | CM ---
Chart reviewed home today, no needs.
Plan; Home with spouse no needs.
[2024-10-04 14:30] VITALS: BP 144/77
[2024-10-04 15:06] VITALS: BP 144/77
== END 2024-10-04 15:21 | disposition home or self-care (01) | DRG 389 ==
LOC: 4 WEST ACU 05:50
PROVIDERS: ADMITTING PHYSICIAN Hospitalist; ATTENDING PHYSICIAN Internal Medicine; EMERGENCY PHYSICIAN Emergency Medicine; FAMILY PHYSICIAN Family Medicine; OTHER PHYSICIAN Surgery
DX: K56.50 Intestinal adhesions [bands], unspecified as to partial versus complete obstruction (principal); C20 Malignant neoplasm of rectum; Z43.2 Encounter for attention to ileostomy; F17.200 Nicotine dependence, unspecified, uncomplicated; I10 Essential (primary) hypertension
CPT/HCPCS: 74177; 80048; 80053; 83605; 83690; 85025; 85027; 96361; 96374; 96375; 96376; 99285; Q9967

== ENCOUNTER → 2024-11-25 09:11 | Outpatient (REF) | payer BC, MEDICARE, SELFPAY | LOC: RAD 09:11 | PROVIDERS: ATTENDING PHYSICIAN Surgery | DX: C18.9 Malignant neoplasm of colon, unspecified (principal); C78.7 Secondary malignant neoplasm of liver and intrahepatic bile duct | CPT/HCPCS: 74270 ==

== ENCOUNTER → 2024-12-02 09:19 | Outpatient (REF) | payer BC, MEDICARE, SELFPAY | LOC: RAD 09:19 | PROVIDERS: ATTENDING PHYSICIAN Surgery; FAMILY PHYSICIAN Family Medicine | DX: C18.9 Malignant neoplasm of colon, unspecified (principal); C78.7 Secondary malignant neoplasm of liver and intrahepatic bile duct | CPT/HCPCS: 74240; 74248 ==